=== PATIENT | male | born 1970 | race Caucasian/White ===

== ENCOUNTER 2022-04-08 01:35 | Emergency (ER) | payer BC ==
[~2022-04-08] VITALS: Ht 175.3 cm; Wt 95.5 kg
[2022-04-08 04:10] VITALS: BP 162/99
[2022-04-08] MEDS ORDERED: AUGMENTIN 875 MG TAB PO ONE (04:15)
[2022-04-08] MEDS ORDERED: AUGM500T34 PO (04:16)
== END 2022-04-08 04:25 | disposition home or self-care (01) ==
LOC: M ED 01:35
DX: K02.9 Dental caries, unspecified (principal); F17.200 Nicotine dependence, unspecified, uncomplicated; Z88.2 Allergy status to sulfonamides; Z91.89 Other specified personal risk factors, not elsewhere classified

== ENCOUNTER → 2022-06-21 | Outpatient (REF) | payer BC ==
[~2022-06-21] MED LIST: AUGM500T34 PO
== END ==
LOC: M LAB REF 19:50
PROVIDERS: ATTEND Student in an Organized Health Care Education/Training Program
DX: J06.9 Acute upper respiratory infection, unspecified (principal)

== ENCOUNTER → 2023-04-14 | Outpatient (CLI) | payer BC | LOC: M WUC 09:57 | PROVIDERS: ATTEND Nurse Practitioner Adult Health | DX: M50.13 Cervical disc disorder with radiculopathy, cervicothoracic region (principal); M47.812 Spondylosis without myelopathy or radiculopathy, cervical region; M25.78 Osteophyte, vertebrae; M47.817 Spondylosis without myelopathy or radiculopathy, lumbosacral region ==

== ENCOUNTER 2024-04-28 11:03 | Day surgery (SDC) | payer BC ==
[~2024-04-28] VITALS: Ht 175.3 cm; Wt 95.3 kg
[~2024-04-28 11:03] MED LIST changes: +NS 1,000 ML IV ONE; +ROSU10TA61 PO
[2024-04-28] MEDS ORDERED: fentaNYL 100 MCG/2 ML INJECTION As Ordered ONE (12:02)
[2024-04-28] MEDS ORDERED: LIDOCAINE 2% 100MG/5ML SDV (FOR ANES.) As Ordered ONE (12:52)
[2024-04-28] MEDS ORDERED: propofoL 200 MG/20 ML VIAL As Ordered ONE (12:52)
[2024-04-28 13:00] VITALS: BP 136/94; O2SAT 94
== END 2024-04-28 13:09 | disposition home or self-care (01) ==
LOC: M OPP 11:03
PROVIDERS: ATTEND Surgery
DX: D12.6 Benign neoplasm of colon, unspecified (principal); K62.5 Hemorrhage of anus and rectum; K21.00 Gastro-esophageal reflux disease with esophagitis, without bleeding; K29.00 Acute gastritis without bleeding; R10.13 Epigastric pain; F17.200 Nicotine dependence, unspecified, uncomplicated; J44.9 Chronic obstructive pulmonary disease, unspecified; Z79.02 Long term (current) use of antithrombotics/antiplatelets; Z88.2 Allergy status to sulfonamides; Z88.1 Allergy status to other antibiotic agents; Z88.8 Allergy status to other drugs, medicaments and biological substances
CPT/HCPCS: 43239; 45385; 88305; J3010

== ENCOUNTER → 2025-06-29 | Outpatient (CLI) | payer BC ==
[~2025-06-29] MED LIST changes: -NS 1,000 ML IV ONE; -ROSU10TA61 PO; +ROSU10TA90 PO
== END ==
LOC: M RAD 14:19
DX: M71.341 Other bursal cyst, right hand (principal); F17.210 Nicotine dependence, cigarettes, uncomplicated; R93.6 Abnormal findings on diagnostic imaging of limbs

== ENCOUNTER → 2025-07-20 | Outpatient (CLI) | payer BC | LOC: M RAD 16:02 | DX: Z87.891 Personal history of nicotine dependence (principal) ==